=== PATIENT | female | born 2000 | race Caucasian/White ===

== ENCOUNTER 2023-02-24 00:13 | Inpatient (IN) ==
[2023-02-24] MEDS ORDERED: LORazepam 2 MG/1 ML VIAL IV STA ×2 (00:33→02:23)
--- NOTE | 2023-02-24 00:39 | Emergency Department Note ---
History of Present Illness General Chief complaint: Chest Pain Stated complaint: CHEST,ABD,SHOULDER PAIN,DIZZY,VOMITING Time Seen by Provider: 02/24/23 00:32 History of Present Illness This 23-year-old female presents the ER complaining of chest pain, nausea vomiting dizziness started after being at a haunted house who also just started fluoxetine 3 days ago. Patient denies fever, chills, cough, congestion, back pain, dyspnea, abdominal pain, leg pain or swelling. She is not sure if the symptoms are related to her new medication. No prior behavioral health medications. Allergies Allergy/AdvReac Type Severity Reaction Status Date / Time No Known Allergies Allergy Unverified 01/02/23 23:10 Past Med/Surg History Social History Smoking Status: Never smoker Second Hand Exposure: No; Do You Dip or Chew Tobacco: No; Tobacco Cessation Education Requested by Patient: No Hx Alcohol Use: Yes Hx Substance Use: No Preferred Language: Korean Communication Ability: Effective Hand Marker Required: No Beliefs That Will Affect Care: None Other Information That Helps Us Care for You: No Feels Safe at Home: Yes Safety Concerns: Feels Safe At This Time Review of Systems A total of 10 systems reviewed and were otherwise negative Physical Exam Vital Signs Vital Signs - 24 hr 02/24/23 00:23 02/24/23 05:29 02/24/23 07:00 Temperature 36.5 C Temperature Source Temporal Artery Scan Pulse Rate 80 Pulse Rate [Finger] 93 H 96 H Pulse Rhythm Regular Pulse Strength Normal Respiratory Rate 20 16 18 Respiratory Effort / Characteristics Non-Labored Spontaneous Respiratory Depth Normal Blood Pressure 110/64 Blood Pressure [Right Arm] 107/49 L 104/58 L Blood Pressure Mean 79 Blood Pressure Mean [Right Arm] 68 73 Blood Pressure Position Sitting Pulse Oximetry 100 97 99 Oxygen Delivery Method Room Air Room Air Sepsis Recent Fever Within 48 Hours No Sepsis New/Unexplained Change in Mental Status N/A Sepsis Action Taken by Nursing No Action Required 02/24/23 08:11 Temperature Temperature Source Pulse Rate 99 H Pulse Rate [Finger] Pulse Rhythm Pulse Strength Respiratory Rate Respiratory Effort / Characteristics Respiratory Depth Blood Pressure Blood Pressure [Right Arm] Blood Pressure Mean Blood Pressure Mean [Right Arm] Blood Pressure Position Pulse Oximetry Oxygen Delivery Method Sepsis Recent Fever Within 48 Hours Sepsis New/Unexplained Change in Mental Status Sepsis Action Taken by Nursing VITALS: Vitals are noted on the nurse's note and reviewed by myself. Vital s igns stable. GENERAL: Pleasant anxious appearing female, in no acute distress, nondiaphoretic, well-developed well-nourished. SKIN: The skin was without rashes, erythema, edema, or bruising. There is no tenting of the skin. Capillary reflex less than 2 seconds. HEAD: Normocephalic atraumatic. EARS: External auditory canals clear, EYES: Pupils equal round and reactive to light and accommodation. Conjunctivae without injection, sclerae without icterus. Extraocular movements intact. NOSE: Patent, turbinates without inflammation or discharge. MOUTH: Mucous membranes moist. Pharynx without erythema or exudate. Uvula midline. Airway patent. Tongue does not deviate. NECK: Supple without nuchal rigidity. No lymphadenopathy. No thyromegaly. Cervical spine is nontender. No JVD. HEART: Regular rate and rhythm LUNGS: Clear to auscultation bilaterally without wheezes, rales or rhonchi. No retractions or accessory muscle use. ABDOMEN: Positive bowel sounds x 4. Normal tympanic percussion. Soft, nontender, without masses or organomegaly. Pickens sign negative. No guarding or rebound tenderness. No CVA tenderness MUSCULOSKELETAL: No muscle atrophy, erythema, or edema noted. NEURO: Patient was alert and oriented to person place and time. Normal sensation to light and sharp touch. No focal neurological deficits. Course Administered Medications Lactated Ringer's (Lr) 1,000 mls @ 100 mls/hr IV .Q10H [facility] Stop: 03/26/23 11:14 Last Admin: 02/24/23 21:14 Dose: 100 mls/hr Documented By: Infusion: 02/24/23 21:14 Dose: 100 mls/hr Documented By: Admin: 02/24/23 13:47 Dose: 100 mls/hr Documented By: JAY Piperacillin Sod/Tazobactam (Sod 4.5 gm/ Dextrose) 100 mls @ 25 mls/hr IV Q8H [facility]ANY[facility]; Protocol Stop: 03/06/23 11:59 Last Admin: 02/24/23 21:13 Dose: 25 mls/hr Documented By: Infusion: 02/24/23 17:59 Dose: 0 mls/hr Documented By: Admin: 02/24/23 14:21 Dose: 25 mls/hr Documented By: JAY Vancomycin HCl 1,250 mg/ (Sodium Chloride) 275 mls @ 200 mls/hr IV Q12H [facility] Stop: 03/06/23 15:59 Last Infusion: 02/24/23 18:46 Dose: 0 mls/hr Documented By: Admin: 02/24/23 17:18 Dose: 200 mls/hr Documented By: JAY Ketorolac Tromethamine (Ketorolac Tromethamine 15 Mg/Ml Vial) 15 mg IV Q6H PRN PRN Reason: Pain & Pre PT Stop: 03/01/23 11:13 Last Admin: 02/24/23 15:56 Dose: 15 mg Documented By: JAY Morphine Sulfate (Morphine Sulfate 4 Mg/Ml 1 Ml Carp\Vial) 4 mg IV Q3H PRN PRN Reason: Pain (6,7,8,9,10) Stop: 03/10/23 11:13 Last Admin: 02/24/23 20:41 Dose: 4 mg Documented By: AMIRA Morphine Sulfate (Morphine Sulfate 2 Mg/Ml Carp) 2 mg IV Q3H PRN PRN Reason: Pain (1,2,3,4,5) & Pre PT Stop: 03/10/23 11:13 Last Admin: 02/24/23 17:26 Dose: 2 mg Documented By: JAY Discontinued Medications Bupivacaine HCl (Bupivacaine 0.5 % 5 Mg/1 Ml Mpf 30ml Vial) Confirm Administered Dose 30 ml .ROUTE .STK-MED ONE Stop: 02/24/23 09:46 Last Admin: 02/24/23 11:08 Dose: Not Given Documented By: GUTIERREZ Bupivacaine HCl/Epinephrine Bitart (Bupivacaine/Epinephrine 0.5% Mpf 1:200,000 30 Ml Vial) Confirm Administered Dose 30 ml .ROUTE .STK-MED ONE Stop: 02/24/23 09:46 Last Admin: 02/24/23 11:08 Dose: Not Given Documented By: GUTIERREZ Fentanyl Citrate (Fentanyl Citrate Pf 100 Mcg/2 Ml Vial) 50 mcg IV Q5M PRN PRN Reason: PACU Use Only-Pain Stop: 02/24/23 18:05 Last Admin: 02/24/23 12:05 Dose: 50 mcg Documented By: Admin: 02/24/23 11:50 Dose: 50 mcg Documented By: SED Fentanyl Citrate (Fentanyl Citrate Pf 100 Mcg/2 Ml Vial) Confirm Administered Dose 100 mcg .ROUTE .STK-MED ONE Stop: 02/24/23 11:51 Last Admin: 02/24/23 13:36 Dose: Not Given Documented By: JAY Sodium Chloride (Nss) 1,000 mls @ 999 mls/hr IV .Q1H1M ONE Stop: 02/24/23 03:23 Last Infusion: 02/24/23 03:28 Dose: 0 mls/hr Documented By: Admin: 02/24/23 02:27 Dose: 999 mls/hr Documented By: ANGELA Pantoprazole Sodium 80 mg/ (Dextrose) 120 mls @ 480 mls/hr IV ONE STA Stop: 02/24/23 04:05 Last Infusion: 02/24/23 05:17 Dose: 0 mls/hr Documented By: Admin: 02/24/23 05:02 Dose: 480 mls/hr Documented By: TRISH Piperacillin Sod/Tazobactam Sod (Zosyn) 4.5 gm in 100 mls @ 200 mls/hr IV NOW ONE Stop: 02/24/23 07:05 Last Infusion: 02/24/23 07:14 Dose: 0 mls/hr Documented By: Admin: 02/24/23 06:52 Dose: 200 mls/hr Documented By: TRISH Sodium Chloride (Nss) 1,000 mls @ 999 mls/hr IV .Q1H1M ONE Stop: 02/24/23 07:36 Last Infusion: 02/24/23 08:00 Dose: 0 mls/hr Documented By: Admin: 02/24/23 06:51 Dose: 999 mls/hr Documented By: TRISH Sodium Chloride (Nss) 1,000 mls @ 999 mls/hr IV .Q1H1M ONE Stop: 02/24/23 07:36 Last Infusion: 02/24/23 13:37 Dose: 0 mls/hr Documented By: Admin: 02/24/23 07:59 Dose: 999 mls/hr Documented By: KASSANDRA Vancomycin HCl 1,250 mg/ (Sodium Chloride) 525 mls @ 200 mls/hr IV NOW ONE Stop: 02/24/23 09:27 Last Admin: 02/24/23 07:59 Dose: 200 mls/hr Documented By: KASSANDRA Ioversol (Optiray 320 500ml) 107 ml IV ONCE ONE Stop: 02/24/23 03:45 Last Admin: 02/24/23 03:44 Dose: 107 ml Documented By: YANDEL Ketorolac Tromethamine (Ketorolac Tromethamine 15 Mg/Ml Vial) 10 mg IV NOW STA Stop: 02/24/23 02:42 Last Admin: 02/24/23 03:35 Dose: 10 mg Documented By: Lidocaine HCl (Lidocaine 1% Local 20 Ml Vial) Confirm Administered Dose 1 ml .ROUTE .STK-MED ONE Stop: 02/24/23 10:15 Last Admin: 02/24/23 11:07 Dose: 20 ml Documented By: MICHAEL Lorazepam (Lorazepam 2 Mg/1 Ml Vial) 0.5 mg IV NOW STA Stop: 02/24/23 00:34 Last Admin: 02/24/23 00:41 Dose: 0.5 mg Documented By: ANGELA Lorazepam (Lorazepam 2 Mg/1 Ml Vial) 0.5 mg IV NOW STA Stop: 02/24/23 02:24 Last Admin: 02/24/23 03:39 Dose: 0.5 mg Documented By: Ondansetron HCl (Ondansetron Inj 2 Mg/Ml 2 Ml Vial) 4 mg IV NOW STA Stop: 02/24/23 01:08 Last Admin: 02/24/23 01:11 Dose: 4 mg Documented By: ANGELA Medical Decision Making Medical Records Attestation: I reviewed the patient's medical records. Home Medications Current Medication List: was personally reviewed by me Laboratory Data Attestation: I reviewed the patient's lab results. 02/24/23 00:35 02/24/23 00:35 Lab Results 02/24/23 02/24/23 02/24/23 Range/Units 00:35 00:35 00:35 WBC 15.14 H (4.8-10.8) K/ul RBC 3.01 L (4.20-5.40) M/uL Hgb 9.2 L (12.0-16.0) g/dl POC Hgb (12.0-16.0) g/dl Hct 27.7 L (37.0-47.0) % POC Hct (37-47) % MCV 92.0 (80.0-100.0) fL MCH 30.6 (25.0-34.0) pg MCHC 33.2 (32.0-36.0) g/dL RDW Std Deviation 41.7 (36.4-46.3) fL RDW Coeff of Pam 12.4 (11.5-14.5) % Plt Count 332 (130-400) K/uL MPV 10.1 (9.4-12.4) fL Immature Gran % (Auto) 0.5 % Neut % (Auto) 77.8 % Lymph % (Auto) 14.3 % Lea % (Auto) 6.2 % Eos % (Auto) 0.7 % Baso % (Auto) 0.5 % Neut # (Auto) 11.78 H (1.40-6.50) K/uL Lymph # (Auto) 2.17 (1.20-3.40) K/uL Lea # (Auto) 0.94 H (0.11-0.59) K/uL Eos # (Auto) 0.10 (0.00-0.50) K/uL Baso # (Auto) 0.08 (0.00-0.20) K/uL Immature Gran # (Auto) 0.07 (0.01-0.20) K/uL POC Sodium (135-144) mmol/L Sodium 138 (136-145) mmol/L POC Potassium (3.3-5.0) mmol/L Potassium 3.7 (3.5-5.1) mmol/L POC Chloride (101-112) mmol/L Chloride 106 (98-107) mmol/L Carbon Dioxide 25 (21-32) mmol/L POC Total CO2 (24-31) mmol/L Anion Gap 7 (3-11) POC Anion Gap (16-25) mmol/L POC BUN (7-18) mg/dl BUN 17 (6-23) mg/dl Creatinine 0.82 (0.6-1.2) mg/dl POC Creatinine (0.6-1.3) mg/dl Est Cr Clr Drug Dosing 102.5 ml/min Est GFR ( Amer) 118.6 ml/min Est GFR (Non-Af Amer) 102.3 ml/min BUN/Creatinine Ratio 20.7 H (10-20) Glucose 129 H (70-99(Fasting)) mg/dl POC Glucose (other) (70-99) mg/dl Calcium 8.9 (8.6-10.3) mg/dl POC Ioniz Calcium Celi (1.12-1.32) mmol/l Magnesium 1.9 (1.7-2.4) mg/dl Total Bilirubin 0.3 (0.2-1.0) mg/dl AST 24 (13-39) U/L ALT 20 (7-52) U/L Alkaline Phosphatase 54 (34-104) U/L Troponin I High Sens 3.2 (0-14) pg/ml Total Protein 6.3 (6.0-8.3) gm/dl Albumin 4.3 (3.4-5.0) gm/dl Globulin 2.0 L (2.5-4.0) gm/dl Albumin/Globulin Ratio 2.2 H (0.9-2) Lipase 11 (11-82) U/L TSH 2.967 (0.300-4.500) uIu/ml HCG, Qual Negative (Negative) Blood Type Antibody Screen 02/24/23 02/24/23 Range/Units 02:32 07:25 WBC (4.8-10.8) K/ul RBC (4.20-5.40) M/uL Hgb (12.0-16.0) g/dl POC Hgb 9.5 L (12.0-16.0) g/dl Hct (37.0-47.0) % POC Hct 28 L (37-47) % MCV (80.0-100.0) fL MCH (25.0-34.0) pg MCHC (32.0-36.0) g/dL RDW Std Deviation (36.4-46.3) fL RDW Coeff of Pam (11.5-14.5) % Plt Count (130-400) K/uL MPV (9.4-12.4) fL Immature Gran % (Auto) % Neut % (Auto) % Lymph % (Auto) % Lea % (Auto) % Eos % (Auto) % Baso % (Auto) % Neut # (Auto) (1.40-6.50) K/uL Lymph # (Auto) (1.20-3.40) K/uL Lea # (Auto) (0.11-0.59) K/uL Eos # (Auto) (0.00-0.50) K/uL Baso # (Auto) (0.00-0.20) K/uL Immature Gran # (Auto) (0.01-0.20) K/uL POC Sodium 138 (135-144) mmol/L Sodium (136-145) mmol/L POC Potassium 3.8 (3.3-5.0) mmol/L Potassium (3.5-5.1) mmol/L POC Chloride 101 (101-112) mmol/L Chloride (98-107) mmol/L Carbon Dioxide (21-32) mmol/L POC Total CO2 23 L (24-31) mmol/L Anion Gap (3-11) POC Anion Gap 19.0 (16-25) mmol/L POC BUN 15 (7-18) mg/dl BUN (6-23) mg/dl Creatinine (0.6-1.2) mg/dl POC Creatinine 0.7 (0.6-1.3) mg/dl Est Cr Clr Drug Dosing ml/min Est GFR ( Amer) ml/min Est GFR (Non-Af Amer) ml/min BUN/Creatinine Ratio (10-20) Glucose (70-99(Fasting)) mg/dl POC Glucose (other) 121 H (70-99) mg/dl Calcium (8.6-10.3) mg/dl POC Ioniz Calcium Celi 1.21 (1.12-1.32) mmol/l Magnesium (1.7-2.4) mg/dl Total Bilirubin (0.2-1.0) mg/dl AST (13-39) U/L ALT (7-52) U/L Alkaline Phosphatase (34-104) U/L Troponin I High Sens (0-14) pg/ml Total Protein (6.0-8.3) gm/dl Albumin (3.4-5.0) gm/dl Globulin (2.5-4.0) gm/dl Albumin/Globulin Ratio (0.9-2) Lipase (11-82) U/L TSH (0.300-4.500) uIu/ml HCG, Qual (Negative) Blood Type A Positive Antibody Screen NEGATIVE Imaging Data Attestation: I personally reviewed and interpreted this imaging study as follows: Radiologist's Impression: Chest X-Ray 02/24/23 00:33 XR chest 1V portable CLINICAL HISTORY: Chest pain, nonspecific TECHNIQUE: Single frontal radiograph of the chest was obtained. Comparison: None available at the time of this dictation. FINDINGS: Pneumoperitoneum is seen. The cardiomediastinal silhouette is normal. The lungs are clear. No evidence of pleural effusion or pneumothorax. IMPRESSION: Pneumoperitoneum is seen. No intrathoracic abnormality. Clinician was aware of findings. ACT 112: Negative or not required by law. Electronically signed by: Yung Gutierrez M.D. 02/24/2023 12:13 PM [facility] Narrative Prior records/ancillary studies reviewed. Triage Nursing notes reviewed. Additional history obtained from nursing. The patient's history was concerning for chest pain, nausea vomiting and dizziness after recently starting fluoxetine. Differential diagnosis: Etiologies such as side effect of behavioral health medication, anxiety, cardiac ischemia, aortic dissection, pulmonary embolism, pneumonia, pneumothorax, musculoskeletal, infections, pericarditis, myocarditis, esophageal rupture, gastrointestinal, as well as others were entertained. Physical examination: As above. ER treatment provided: An order was placed for continuous cardiac monitoring. The monitor shows a rate of 60-100 with a sinus rhythm per my interpretation. Ativan, Toradol, IV fluids were ordered Zosyn, vancomycin, IV fluids were ordered. Type and screen was sent. On reassessment the patient felt better. Diagnostic interpretation by me: The electrocardiogram was negative for pathologic change. Order for chest pain EKG: Normal sinus, normal intervals, T wave inversion aVL, rate of 63. Impression normal sinus rhythm with a nonspecific T wave version independent interpreted by myself I think arrhythmia is unlikely. EKG shows normal sinus rhythm with no interval abnormalities such as QT prolongation or WPW. There are no findings to suggest Brugada syndrome. Cardiac monitoring in the emergency department reveals no tachycardic or bradycardic dysrhythmia. Hypertrophic cardiomyopathy was considered but there are no clear historical elements pointing toward this. EKG is not suggestive. The QRS voltage is not extremely large and there are no suggestive Q waves. The labs Independently Interpreted by myself revealed negative troponin, anemia, hyperglycemia that DKA, euthyroid, negative hCG Leukocytosis. Patient states she has been anemic and occasionally takes her iron. Imaging studies: Chest x-ray with concerns for possible free air under the diaphragm per my independent interpretation. CT of the chest abdomen pelvis was reviewed and read by radiology as above. Surgery was immediately consulted HEART SCORE: Hx: high/mod/low suspicion: 0 ECG: ST depression/nonspecific changes/normal: 0 Age: Greater than 65/45-64/less than 45: 0 Risk factors: (Hypertension, hyperlipidemia, diabetes, coronary disease, tobacco use, cocaine use): 0 Troponin: Greater than 2 times normal limits/1-2 times normal limits/normal: 0 Total: 0 On repeat exam, patient then developed abdominal pain so advanced imaging was ordered. This is after the nurse medicated her as above with Ativan fluids and Toradol. Consultation was placed to surgery, Dr. Cornejo and the case was reviewed. He will come in and evaluate the patient. Exam and history are concerning for viscus perforation that most likely is from a stomach ulcer. Patient was already given Protonix by myself and antibiotics after imaging was reviewed. Surgery was immediately consulted. They will evaluate the patient. Patient will be admitted to the surgical service for further evaluation and treatment. Results were reviewed with the patient and all questions were answered. Patient initially came in for chest pain and nausea vomiting and feeling lightheaded after being in a haunted house due to started fluoxetine. After being in the ER for a while she then developed abd ominal pain so advanced imaging was ordered. Labs and diagnostics are interventricular myself. Radiology read the CAT scan. Surgery was consulted and patient will be evaluated surgical service. Patient was reassessed multiple times. Results reviewed with patient. Surgery took the patient to the OR for further evaluation and treatment. Patient remained hemodynamically stable while in the ER. The pt informed about the findings as listed above. All questions were answered and pleased with the treatment. The chart was completed utilizing [employer] Speech voice recognition software. Grammatical errors, random word insertions, pronoun errors, and incomplete sentences are an occassional consequence of this system due to software limitations, ambient noise, and hardware issues. Any formal questions or concerns about the content, text, or information contained within the body of this dictation should be directly addressed to the physician technical support assistant for clarification. Impression & Plan Perforation of viscus Discharge Plan Visit Data Chief Complaint: Chest Pain Stated Complaint: CHEST,ABD,SHOULDER PAIN,DIZZY,VOMITING ED Provider: Vivien Breaux ED Midlevel Provider: Rose Gomez Discharge Problem: Perforation of viscus Patient Disposition: Admitted As Inpatient Condition: Good Discharge Instructions Interventions: ED Discharge Assessment Last Done: 02/24/23 08:47
[2023-02-24] MEDS ORDERED: ONDANSETRON INJ 2 MG/ML 2 ML VIAL IV STA (01:07)
[2023-02-24 01:19] LABS: Basophils # (auto) 0.08 K/uL (0.00-0.20); Basophils % (auto) 0.5 %; Eosinophils % (auto) 0.7 %; Hematocrit (blood only) 27.7 % (37.0-47.0); Hemoglobin 9.2 g/dl (12.0-16.0); Immature Granulocytes # (auto) 0.07 K/uL (0.01-0.20); Immature Granulocytes % (auto) 0.5 %; Lymphocytes # (auto) 2.17 K/uL (1.20-3.40); Lymphocytes % (auto) 14.3 %; Mean Corpuscular Hemoglobin 30.6 pg (25.0-34.0); Mean Corpuscular Hgb Conc 33.2 g/dL (32.0-36.0); Mean Platelet Volume 10.1 fL (9.4-12.4); Monocytes # (auto) 0.94 K/uL (0.11-0.59); Monocytes % (auto) 6.2 %; Neutrophils # (auto) 11.78 K/uL (1.40-6.50); Neutrophils % (auto) 77.8 %; Platelet Count 332 K/uL (130-400); RDW Coefficient of Variation 12.4 % (11.5-14.5); RDW Standard Deviation 41.7 fL (36.4-46.3); Red Blood Count 3.01 M/uL (4.20-5.40); White Blood Count 15.14 K/ul (4.8-10.8)
[2023-02-24 01:24] LABS: Troponin I High Sensitivity 3.2 pg/ml (0-14)
[2023-02-24 01:26] LABS: Pregnancy Test, Serum Negative (Negative)
[2023-02-24 01:33] LABS: Thyroid Stimulating Hormone 2.967 uIu/ml (0.300-4.500)
[2023-02-24] MEDS ORDERED: SODIUM CHLORIDE 0.9% 1,000 ML IV ONE ×3 (02:23→06:36)
[2023-02-24 02:35] LABS: Albumin Level 4.3 gm/dl (3.4-5.0); Bilirubin,Total 0.3 mg/dl (0.2-1.0); Calcium 8.9 mg/dl (8.6-10.3); Magnesium 1.9 mg/dl (1.7-2.4); Potassium 3.7 mmol/L (3.5-5.1)
[2023-02-24] MEDS ORDERED: KETOROLAC TROMETHAMINE 15 MG/ML VIAL IV STA (02:41)
[2023-02-24 02:42] LABS: Albumin Globulin Ratio 2.2 (0.9-2); BUN Creatinine Ratio 20.7 (10-20); Creatinine Clr Calc Pharmacy 102.5 ml/min; Est GFR (African American) 118.6 ml/min; Est GFR (Non-African American) 102.3 ml/min; Total Protein 6.3 gm/dl (6.0-8.3)
[2023-02-24 02:49] LABS: iSTAT Creatinine 0.7 mg/dl (0.6-1.3); iSTAT Hemoglobin 9.5 g/dl (12.0-16.0); iSTAT Ionized Calcium 1.21 mmol/l (1.12-1.32); iSTAT Potassium 3.8 mmol/L (3.3-5.0)
[2023-02-24] MEDS ORDERED: OPTIRAY 320 500ml IV ONE (03:44)
[2023-02-24] MEDS ORDERED: PANTOprazole 80 MG in DEXTROSE 5% 100 ML IV STA (03:51)
--- NOTE | 2023-02-24 06:33 | CT Scan Report ---
Exam(s): CTA CHEST IV Amt: 107 ml opti 320 EXAM: CT Angiography Chest and CT Abdomen and Pelvis With Intravenous Contrast CLINICAL HISTORY: Reason for exam: PE. TECHNIQUE: Axial computed tomographic angiography images of the chest and axial computed tomography images of the abdomen and pelvis with intravenous contrast. Automated exposure control was utilized for the study. A dose lowering technique was utilized adhering to the principles of ALARA. MIP reconstructed images were created and reviewed. COMPARISON: No relevant prior studies available. FINDINGS: CHEST: Aorta: No acute findings. No aortic aneurysm. No dissection. Pulmonary arteries: Motion artifact and bolus timing limit evaluation. Despite this, no evidence of pulmonary embolism within the pulmonary outflow tract or immediate proximal branches. Great vessels of aortic arch: No acute findings. No dissection. No arterial occlusion or significant stenosis. Lungs: Unremarkable. No mass. No consolidation. Pleural space: Unremarkable. No significant effusion. No pneumothorax. Heart: Unremarkable. No cardiomegaly. No significant pericardial effusion. ABDOMEN: Liver: Unremarkable. No mass. Gallbladder and bile ducts: Unremarkable. No calcified stones. No ductal dilation. Pancreas: Unremarkable. No ductal dilation. No mass. Spleen: Unremarkable. No splenomegaly. Adrenals: Unremarkable. No mass. Kidneys and ureters: Unremarkable. No hydronephrosis. No solid mass. Stomach and bowel: No evidence of bowel obstruction. No mucosal thickening. PELVIS: Appendix: The appendix is poorly visualized without gross findings to suggest appendicitis. Bladder: Unremarkable. No mass. Reproductive: Unremarkable as visualized. CHEST, ABDOMEN and PELVIS: Intraperitoneal space: Diffuse free air within the upper abdomen. Findings may relate to viscus perforation. Site of perforation not identified. Consider surgical consultation. Mild pelvic free fluid which may be reactive or physiologic in nature. Bones/joints: No acute fracture. No dislocation. Soft tissues: Unremarkable. Lymph nodes: Unremarkable. No enlarged lymph nodes. Other findings: Mild dependent atelectatic changes. IMPRESSION: 1. Diffuse free air within the upper abdomen. Findings may relate to viscus perforation. Site of perforation not identified. Consider surgical consultation. 2. No evidence of bowel obstruction. 3. Mild pelvic free fluid which may be reactive or physiologic in nature. 4. The appendix is poorly visualized without gross findings to suggest appendicitis. 5. Motion artifact and bolus timing limit evaluation. Despite this, no evidence of pulmonary embolism within the pulmonary outflow tract or immediate proximal branches. Communications: Call Doctor Above results Electronically signed by: Ernie Chang MD 02/24/23 06:32 AM
[2023-02-24] MEDS ORDERED: PIPERACILLIN/TAZOBACTAM 4.5 GM/100 ML BAG IV ONE (06:36)
[2023-02-24] MEDS ORDERED: VANCOMYCIN HCL 1,250 MG in SODIUM CHLORIDE 0.9% 500 ML IV ONE (06:50)
[2023-02-24] MEDS ORDERED: VANCOMYCIN CONSULT ACTIVE PRN (06:50)
--- NOTE | 2023-02-24 08:13 | History & Physical Report ---
Date of Service February 24, 2023 Assessment & Plan (1) Perforation of viscus: Plan: IVF IV bax to OR for exploration with likely perforated duodenal ulcer Present on Admission?: Yes History of Present Illness Chief Complaint: abdominal pain Primary Care Provider: [facility] This is a 23-year-old female complaining of chest/abdominal pain, nausea vomiting dizziness started after being at a haunted house who also just started fluoxetine 3 days ago. No vomiting. Seen initially and then pain got much worse. She denies fever, chills, cough, congestion, back pain, dyspnea, abdominal pain, leg pain or swelling. Not on chronic NSAIDs. CT scan shows free air and some fluid in her pelvis; no diverticulitis/no appendicitis. Allergies Allergy/AdvReac Type Severity Reaction Status Date / Time No Known Allergies Allergy Unverified 01/02/23 23:10 Past Med/Surg History Social History Smoking Status: Never smoker Preferred Language: Pashto Feels Safe at Home: Yes Review of Systems + weakness and + anorexia; no fever and no chills no problem reported no problem reported no cough and no dyspnea + chest pain; no dyspnea + abdominal pain and + nausea; no vomiting, no hematemesis and no change in bowel habits no dysuria + back pain; no neck pain and no joint pain no rash and no lesions no gait abnormality and no localized weakness no behavioral changes no fatigue no easy bleeding and no easy bruising Physical Exam Constitutional: WD/WN, vitals as above Eyes: PERRL, conjunctivae normal, anicteric sclerae ENMT: external ear and nose normal, oropharynx normal Neck: trachea midline Respiratory: normal respiratory effort, lungs clear to auscultation Cardiovascular: RRR, no murmur, no edema Gastrointestinal (Abdomen): Inspection/Auscultation: abdomen normal to inspection, normal bowel sounds, + abdominal surgical scar and + hypoactive bowel sounds; abdomen not distended Percussion/Palpation: + abdomen tender, + guarding and abdomen soft; abdomen not rigid and no hernia Musculoskeletal: Head/Neck/Chest: normocephalic and head atraumatic Skin: no rashes, warm and dry Psychiatric: Orientation: alert, oriented x 3 and cooperative ASA Classification ASA ASA1E Results & Data Vital Signs (Past 12 Hours) Vital Signs Temp Pulse Pulse Resp BP BP Pulse Ox 02/24/23 07:00 96 H 18 104/58 L 99 02/24/23 05:29 93 H 16 107/49 L 97 02/24/23 00:23 36.5 C 80 20 110/64 100 O2 Del Method 02/24/23 07:00 Room Air 02/24/23 05:29 02/24/23 00:23 Room Air Diagnostic Findings Exam(s): CT ABDOMEN + PELVIS With Contrast IV Amt: 107 ml opti 320 EXAM: CT Angiography Chest and CT Abdomen and Pelvis With Intravenous Contrast CLINICAL HISTORY: Reason for exam: PE. TECHNIQUE: Axial computed tomographic angiography images of the chest and axial computed tomography images of the abdomen and pelvis with intravenous contrast. Automated exposure control was utilized for the study. A dose lowering technique was utilized adhering to the principles of ALARA. MIP reconstructed images were created and reviewed. COMPARISON: No relevant prior studies available. FINDINGS: CHEST: Aorta: No acute findings. No aortic aneurysm. No dissection. Pulmonary arteries: Motion artifact and bolus timing limit evaluation. Despite this, no evidence of pulmonary embolism within the pulmonary outflow tract or immediate proximal branches. Great vessels of aortic arch: No acute findings. No dissection. No arterial occlusion or significant stenosis. Lungs: Unremarkable. No mass. No consolidation. Pleural space: Unremarkable. No significant effusion. No pneumothorax. Heart: Unremarkable. No cardiomegaly. No significant pericardial effusion. ABDOMEN: Liver: Unremarkable. No mass. Gallbladder and bile ducts: Unremarkable. No calcified stones. No ductal dilation. Pancreas: Unremarkable. No ductal dilation. No mass. Spleen: Unremarkable. No splenomegaly. Adrenals: Unremarkable. No mass. Kidneys and ureters: Unremarkable. No hydronephrosis. No solid mass. Stomach and bowel: No evidence of bowel obstruction. No mucosal thickening. PELVIS: Appendix: The appendix is poorly visualized without gross findings to suggest appendicitis. Bladder: Unremarkable. No mass. Reproductive: Unremarkable as visualized. CHEST, ABDOMEN and PELVIS: Intraperitoneal space: Diffuse free air within the upper abdomen. Findings may relate to viscus perforation. Site of perforation not identified. Consider surgical consultation. Mild pelvic free fluid which may be reactive or physiologic in nature. Bones/joints: No acute fracture. No dislocation. Soft tissues: Unremarkable. Lymph nodes: Unremarkable. No enlarged lymph nodes. Other findings: Mild dependent atelectatic changes. IMPRESSION: 1. Diffuse free air within the upper abdomen. Findings may relate to viscus perforation. Site of perforation not identified. Consider surgical consultation. 2. No evidence of bowel obstruction. 3. Mild pelvic free fluid which may be reactive or physiologic in nature. 4. The appendix is poorly visualized without gross findings to suggest appendicitis. 5. Motion artifact and bolus timing limit evaluation. Despite this, no evidence of pulmonary embolism within the pulmonary outflow tract or immediate proximal branches. Code Status & VTE Plan VTE Prophylaxis Plan VTE Prophylaxis will be ordered: Yes
--- NOTE | 2023-02-24 09:20 | Emergency Department Note ---
ED Visit Note Patient seen by physician assistant program manager Jason burch. Diagnosed with free air in the abdomen possible perforated ulcer. Received IV dose of PPI. Received IV Zosyn. IV vancomycin ordered and administered. Surgical consultation completed. Dr. Cornejo plans for OR for exploration given this finding on CT of free air. Patient hemodynamically stable here. Patient declined any additional pain medicine. Taken to the OR for further care. .
[2023-02-24] MEDS ORDERED: FAMOTIDINE/PF 20 MG/2 ML VIAL IV ONE (09:30)
[2023-02-24] MEDS ORDERED: SCOPOLAMINE 1 MG TDSY TD ONE (09:30)
[2023-02-24] MEDS ORDERED: ACETAMINOPHEN 1000 MG/100 ML IV IV ONE (09:30)
[2023-02-24] MEDS ORDERED: fentaNYL citrate PF 100 MCG/2 ML VIAL ONE ×2 (09:32→11:50)
[2023-02-24] MEDS ORDERED: MIDAZOLAM HCL 1 MG/ML 2ML VIAL ONE (09:32)
[2023-02-24] MEDS ORDERED: LIDOCAINE 2% 2 ML VIAL/AMP(20MG/ML) INFIL ONE (09:32)
[2023-02-24] MEDS ORDERED: ROCURONIUM BROMIDE 10 MG/ML 5 ML VIAL IV ONE (09:33)
[2023-02-24] MEDS ORDERED: SUCCINYLCHOLINE CHLORIDE 20 MG/ML 10 ML VIAL IV ONE (09:33)
[2023-02-24] MEDS ORDERED: PROPOFOL IV EMULSION 10 MG/ML 20 ML VIAL IV ONE (09:33)
[2023-02-24] MEDS ORDERED: ONDANSETRON INJ 2 MG/ML 2 ML VIAL ONE (09:33)
[2023-02-24] MEDS ORDERED: DEXAMETHASONE SOD INJ 4 MG/ML VIAL ONE (09:35)
[2023-02-24] MEDS ORDERED: BUPIVACAINE/EPINEPHRINE 0.5% MPF 1:200,000 30 ML VIAL ONE (09:45)
[2023-02-24] MEDS ORDERED: BUPIVACAINE 0.5 % 5 MG/1 ML MPF 30ML VIAL ONE (09:45)
--- NOTE | 2023-02-24 10:03 | Anesthesiology Consultation ---
Date of Service February 24, 2023 Assessment & Plan Chart Review Chart Review: Acceptable Risk for Surgery Consults Requested none History Surgery Operation Date: 02/24/23 11:00 Proposed Procedures p Exploratory Laparotomy - Alvin Cornejo MD Height/Weight Height: 5 ft 7 in Weight: 59.8 kg Allergies Allergy/AdvReac Type Severity Reaction Status Date / Time No Known Allergies Allergy Unverified 01/02/23 23:10 NPO Date Last Intake of Fluids: 02/23/23 Time Last Intake of Fluids: 21:00 Date Last Intake of Solids: 02/23/23 Time Last Intake of Solids: 21:00 Social History Smoking Status: Never smoker Physical Exam Vital Signs Last Vital Signs Temp 36.5 C 02/24/23 00:23 Pulse 99 H 02/24/23 08:11 Resp 18 02/24/23 07:00 BP 104/58 L 02/24/23 07:00 Pulse Ox 99 02/24/23 07:00 O2 Del Method Room Air 02/24/23 07:00 Testing Laboratory Results 02/24/23 00:35 02/24/23 00:35 Blood Type A Positive 02/24/23 07:25 Antibody Screen NEGATIVE 02/24/23 07:25 02/24/23 02:32 POC Glucose (other) 121 H
[2023-02-24] MEDS ORDERED: ATROPINE SULFATE 0.1 MG/ML 10ML SYR IV PRN (10:05)
[2023-02-24] MEDS ORDERED: ePHEDrine sulfate 50 MG/ML AMP IV PRN (10:05)
[2023-02-24] MEDS ORDERED: HYDROmorphone INJ 2 MG/ML SYR/VIAL IV PRN (10:05)
[2023-02-24] MEDS ORDERED: ONDANSETRON INJ 2 MG/ML 2 ML VIAL IV PRN ×2 (10:05→11:14)
[2023-02-24] MEDS ORDERED: PROMETHAZINE HCL 12.5 MG in SODIUM CHLORIDE 0.9% 50 ML IV PRN ×2 (10:05→11:14)
[2023-02-24] MEDS ORDERED: LIDOCAINE 1% LOCAL 20 ML VIAL ONE (10:14)
[2023-02-24] MEDS ORDERED: NEOSTIGMINE METHYLSULFATE 1 MG/ML 10ML VIAL ONE (10:30)
[2023-02-24] MEDS ORDERED: GLYCOPYRROLATE 0.2 MG/ML VIAL ONE (10:30)
[2023-02-24] MEDS ORDERED: PHENYLEPHRINE HCL 10 MG/ML VIAL ONE (10:30)
[2023-02-24] MEDS ORDERED: METOCLOPRAMIDE HCL INJ 5 MG/ML 2 ML VIAL ONE (10:31)
[2023-02-24] MEDS ORDERED: HYDROmorphone INJ 2 MG/ML SYR/VIAL ONE (10:45)
[2023-02-24] MEDS ORDERED: KETOROLAC TROMETHAMINE 15 MG/ML VIAL IV PRN (11:14)
--- NOTE | 2023-02-24 11:23 | Operative Report ---
Post Operative Report Pre & Post Diagnosis Operation Date: 02/24/23 11:00 <No data on this case meets the specified criteria> I identified the patient and participated in the time-out.: Yes Procedure Operation Date: 02/24/23 11:00 <No data on this case meets the specified criteria> Surgeon Alvin Cornejo MD Superintendent Stevedoring none Estimated Blood Loss 30 Findings Consistent with Post-Op Diagnosis perforated gastric ulcer Specimens biopsy of gastric ulcer Drains [place] Complications none Indications This is a 23-year-old female who initially presented to the ED with with abdominal pain. She was initially ambulatory and underwent a work-up which included a CT scan of the CT scan showed a large amount of free air and fluid in her pelvis. She began having more severe abdominal pain. She had an elevated heart rate and complained of more pain. On exam she had peritoneal signs we discussed this in detail with her and recommended exploratory laparotomy I went over the risks of possible colostomy,reoperation, IR drainage, bleeding requiring transfusion and prolonged ileus. She understands this and wishes to proceed. Description of Procedure Patient was taken to the OR and underwent excellent general trach anesthesia. Her abdomen is prepped and draped normal sterile fashion. An upper midline incision was made from her xiphoid down to just below her umbilicus. Peritoneal cavity was entered sharply. There is a large amount of turbid fluid which is identified. Retraction was placed and her upper abdomen. Her duodenum was identified and slightly mobilized without any abnormalities noted. Attention was then turned to her stomach using [place] clamps to retract her stomach inferiorly. There was a subcentimeter gastric perforation just proximal to the pylorus on the anterior surface of the stomach. Once is identified a biopsy was taken of the ulcer to remove the abnormal tissue. This is sent for pathologic evaluation. A series of interrupted 2-0 silk suture was used to close the defec t. The tails of the sutures were then used to buttress the repair with a segment of omentum. The abdomen was then irrigated out with warm saline 1 L. With anesthesia help NG tube was manipulated into the body of the stomach. A Villa drain was then brought out through a stab incision in the right abdominal wall and laid along the subhepatic space near the defect repair. Suture the fascia was then closed with a running #1 PDS suture. 1% Xylocaine was used to create a foot field block in her skin and fascia. Skin was closed with ike. Sterile dressing was applied. Patient was then extubated in the OR and sent to the postop recovery for a period of observation. She will be then sent to the floor for care. I attest to the content of the Intraoperative Record and any orders documented therein. Any exceptions are noted below.
[2023-02-24] MEDS: fentaNYL citrate PF 100 MCG/2 ML VIAL IV PRN ×2 (11:50→12:05)
--- NOTE | 2023-02-24 12:15 | XRay Report ---
XR chest 1V portable CLINICAL HISTORY: Chest pain, nonspecific TECHNIQUE: Single frontal radiograph of the chest was obtained. Comparison: None available at the time of this dictation. FINDINGS: Pneumoperitoneum is seen. The cardiomediastinal silhouette is normal. The lungs are clear. No evidenc e of pleural effusion or pneumothorax. IMPRESSION: Pneumoperitoneum is seen. No intrathoracic abnormality. Clinician was aware of findings. ACT 112: Negative or not required by law. Electronically signed by: Yung Gutierrez M.D. 02/24/2023 12:13 PM
--- NOTE | 2023-02-24 13:39 | Anesthesiology Progress Note ---
Date of Service February 24, 2023 Anesthesia Post Procedure Vital Signs Vital Signs: Temp Pulse Pulse Pulse Resp BP BP 02/24/23 12:35 70 16 108/50 L 02/24/23 12:25 70 16 112/49 L 02/24/23 11:55 62 18 102/50 L 02/24/23 11:45 59 L 17 103/57 L 02/24/23 11:35 56 L 19 99/45 L 02/24/23 12:15 36.9 C 70 14 107/65 02/24/23 12:05 67 14 114/62 02/24/23 11:29 36.5 C 61 19 99/57 L 02/24/23 08:11 99 H 02/24/23 07:00 96 H 18 02/24/23 05:29 93 H 16 02/24/23 00:23 36.5 C 80 20 110/64 BP Pulse Ox O2 Del Method O2 Flow Rate 02/24/23 12:35 94 Room Air 02/24/23 12:25 95 Room Air 02/24/23 11:55 96 Room Air 02/24/23 11:45 100 Oxymask 4 02/24/23 11:35 100 Oxymask 6 02/24/23 12:15 95 Room Air 02/24/23 12:05 97 Room Air 02/24/23 11:29 100 Oxymask 6 02/24/23 08:11 02/24/23 07:00 104/58 L 99 Room Air 02/24/23 05:29 107/49 L 97 02/24/23 00:23 100 Room Air Pain Intensity Abdomen: Pain Intensity: 2 Transfer of Care Handoff Completed per policy Notes Mental Status: alert / awake / arousable and participated in evaluation Patient Amnestic to Procedure: Yes Nausea / Vomiting: adequately controlled Pain: adequately controlled Airway Patency, RR, SpO2: stable & adequate BP & HR: stable & adequate Hydration State: stable & adequate Anesthetic Complications: no major complications apparent
[2023-02-24] MEDS: LACTATED RINGER'S 1,000 ML IV SCH ×2 (13:47→21:14)
[2023-02-24] MEDS: PIPERACILLIN/TAZOBACTAM 4.5 GM in DEXTROSE 5% MINI-B 100 ML IV SCH ×2 (14:21→21:13)
--- NOTE | 2023-02-24 15:49 | Pharmacy Report ---
Pharmacy PK ABX Note - Date of Service February 24, 2023 - Assessment and Plan Assessment 23 year old F receiving VANCOMYCIN/ZOSYN for treatment of perforated gastric ulcer. POD #0. Plan Vancomycin * Loading dose: 1250 mg IV x 1 * Maintenance dose: 1250 mg IV every 12 hours * Regimen is predicted to achieve target AUC/SHARATH of 400-600 mg/L.hr * Trough for 10/16 AM if vancomycin continues. Pharmacy will continue to follow and will adjust dose/frequency as necessary. Thank you. Pharmacy has transitioned to AUC monitoring for vancomycin. AUC/SHARATH is the preferred PK/PD target and is associated with decreased risk of nephrotoxicity compared to traditional trough targets.
[2023-02-24] MEDS: VANCOMYCIN HCL 1,250 MG in SODIUM CHLORIDE 0.9% 250 ML IV SCH (17:18)
[2023-02-24] MEDS: MoRPHine SULFATE 2 MG/ML CARP IV PRN (17:26)
[2023-02-24] MEDS: MoRPHine SULFATE 4 MG/ML 1 ML CARP\\VIAL IV PRN (20:41)
[2023-02-25] MEDS: MoRPHine SULFATE 4 MG/ML 1 ML CARP\\VIAL IV PRN ×5 (00:22→20:10)
[2023-02-25] MEDS: CHECK SCOPOLAMINE PATCH PLACEMENT SCH ×3 (01:51→16:05)
[2023-02-25] MEDS: PIPERACILLIN/TAZOBACTAM 4.5 GM in DEXTROSE 5% MINI-B 100 ML IV SCH ×3 (04:40→20:19)
[2023-02-25] MEDS: VANCOMYCIN HCL 1,250 MG in SODIUM CHLORIDE 0.9% 250 ML IV SCH ×2 (06:18→16:05)
[2023-02-25] MEDS: LACTATED RINGER'S 1,000 ML IV SCH (06:18)
--- NOTE | 2023-02-25 07:37 | Electrocardiogram Report ---
Test Reason : Blood Pressure : / mmHG Vent. Rate : 063 BPM Atrial Rate : 063 BPM P-R Int : 174 ms QRS Dur : 080 ms QT Int : 396 ms P-R-T Axes : 013 016 061 degrees QTc Int : 405 ms Normal sinus rhythm Possible Left atrial enlargement Nonspecific T wave abnormality Abnormal ECG No previous ECGs available Confirmed by Dameon Davey ([id number]) on 02/25/2023 7:36:54 AM Referred By: REFERRED SELF Confirmed By:Dameon Davey
[2023-02-25 08:01] LABS: Basophils # (auto) 0.03 K/uL (0.00-0.20); Basophils % (auto) 0.3 %; Eosinophils # (auto) 0.02 K/uL (0.00-0.50); Eosinophils % (auto) 0.2 %; Hematocrit (blood only) 22.6 % (37.0-47.0); Hemoglobin 7.5 g/dl (12.0-16.0); Immature Granulocytes # (auto) 0.04 K/uL (0.01-0.20); Immature Granulocytes % (auto) 0.4 %; Lymphocytes # (auto) 1.94 K/uL (1.20-3.40); Lymphocytes % (auto) 21.3 %; Mean Corpuscular Hemoglobin 30.5 pg (25.0-34.0); Mean Corpuscular Hgb Conc 33.2 g/dL (32.0-36.0); Mean Corpuscular Volume 91.9 fL (80.0-100.0); Mean Platelet Volume 10.2 fL (9.4-12.4); Monocytes # (auto) 0.81 K/uL (0.11-0.59); Monocytes % (auto) 8.9 %; Neutrophils # (auto) 6.26 K/uL (1.40-6.50); Neutrophils % (auto) 68.9 %; Platelet Count 230 K/uL (130-400); RDW Standard Deviation 44.2 fL (36.4-46.3); Red Blood Count 2.46 M/uL (4.20-5.40)
[2023-02-25 08:32] LABS: RBC Morphology Unremarkable
[2023-02-25 08:41] LABS: Potassium 3.9 mmol/L (3.5-5.1)
[2023-02-25 08:46] LABS: BUN Creatinine Ratio 16.5 (10-20); Creatinine Clr Calc Pharmacy 106.3 ml/min
--- NOTE | 2023-02-25 11:33 | Surgery Progress Note ---
Date of Service February 25, 2023 Assessment & Plan (1) Perforated gastric ulcer: Plan: con't ngt likely study Sunday adjust pain meds ambulate PPI Present on Admission?: Yes Admission and Anticipated Discharge Date Admission Date: February 24, 2023 Subjective still with breakthrough pain no complaints otherwise ambulate Review of Systems Constitutional: no fever and no chills Cardiovascular: no chest pain Gastrointestinal: + abdominal pain; no nausea and no vomiting Genitourinary: no dysuria Musculoskeletal: no back pain Neurologic: + generalized weakness; no localized weakness Psychiatric: no behavioral changes Physical Exam Constitutional: WD/WN, vitals as above Eyes: PERRL, conjunctivae normal, anicteric sclerae Respiratory: normal respiratory effort, lungs clear to auscultation Cardiovascular: RRR, no murmur, no edema Gastrointestinal (Abdomen): Inspection/Auscultation: normal bowel sounds and + abdominal surgical incision; abdomen not distended Percussion/Palpation: + abdomen tender and abdomen soft; no guarding and abdomen not rigid Skin: no rashes, warm and dry Results & Data Vital Signs (Past 12 Hours) Vital Signs Temp Pulse Resp BP Pulse Ox O2 Del Method 02/25/23 07:51 101/61 02/25/23 06:29 37.5 C 68 16 96/55 L 95 Room Air 02/25/23 04:23 36.9 C 61 16 107/58 L 96 Room Air 02/24/23 23:44 36.9 C 82 16 95/60 L 96 Room Air
[2023-02-25] MEDS: PANTOprazole 40 MG in SYRINGE 0 ML IV SCH (12:00)
[2023-02-25] MEDS: D5NSS + 20MEQ KCL 20 MEQ/1,000 ML BAG IV SCH ×2 (12:40→23:34)
[2023-02-25] MEDS: MoRPHine SULFATE 2 MG/ML CARP IV PRN ×2 (16:57→23:05)
[2023-02-26] MEDS: CHECK SCOPOLAMINE PATCH PLACEMENT SCH ×3 (00:24→17:25)
[2023-02-26] MEDS: MoRPHine SULFATE 2 MG/ML CARP IV PRN ×2 (02:43→09:48)
[2023-02-26] MEDS ORDERED: VANCOMYCIN LEVEL ONE (03:30)
[2023-02-26 04:38] LABS: Creatinine Clr Calc Pharmacy 103.7 ml/min; Est GFR (African American) 120.3 ml/min; Est GFR (Non-African American) 103.8 ml/min
[2023-02-26] MEDS: HYDROmorphone INJ 0.5 MG/0.5 ML SYR IV PRN ×2 (05:05→21:34)
[2023-02-26] MEDS: VANCOMYCIN HCL 1,250 MG in SODIUM CHLORIDE 0.9% 250 ML IV SCH (05:06)
[2023-02-26] MEDS: PIPERACILLIN/TAZOBACTAM 4.5 GM in DEXTROSE 5% MINI-B 100 ML IV SCH ×3 (05:06→21:59)
--- NOTE | 2023-02-26 09:12 | Pharmacy Report ---
Pharmacy PK ABX Note - Date of Service February 26, 2023 - Assessment and Plan Assessment 23 year old F receiving VANCOMYCIN/ZOSYN for treatment of perforated gastric ulcer. POD #2. Leukocytosis resolved. No culture data. Level obtained this morning suggests low end of therapeutic AUC/SHARATH target, however given level <10 mg/L will adjust do to ensure we are achieving therapeutic range. Plan Vancomycin * Loading dose: 1250 mg IV x 1 * Previous dose: 1250 mg q12H * Adjust dose to : 1000 mg IV every 8 hours * Regimen is predicted to achieve target AUC/SHARATH of 400-600 mg/L.hr (527 mg/L.hr) * Random level for 02/27 @ 1000 Pharmacy will continue to follow and will adjust dose/frequency as necessary. Thank you. Pharmacy has transitioned to AUC monitoring for vancomycin. AUC/SHARATH is the preferred PK/PD target and is associated with decreased risk of nephrotoxicity compared to traditional trough targets.
[2023-02-26 09:46] LABS: Basophils # (auto) 0.03 K/uL (0.00-0.20); Basophils % (auto) 0.4 %; Eosinophils # (auto) 0.08 K/uL (0.00-0.50); Hematocrit (blood only) 24.9 % (37.0-47.0); Hemoglobin 8.1 g/dl (12.0-16.0); Immature Granulocytes # (auto) 0.02 K/uL (0.01-0.20); Immature Granulocytes % (auto) 0.2 %; Lymphocytes # (auto) 0.67 K/uL (1.20-3.40); Lymphocytes % (auto) 8.2 %; Mean Corpuscular Hemoglobin 30.1 pg (25.0-34.0); Mean Corpuscular Hgb Conc 32.5 g/dL (32.0-36.0); Mean Corpuscular Volume 92.6 fL (80.0-100.0); Mean Platelet Volume 10.1 fL (9.4-12.4); Monocytes # (auto) 0.81 K/uL (0.11-0.59); Monocytes % (auto) 9.9 %; Neutrophils # (auto) 6.54 K/uL (1.40-6.50); Neutrophils % (auto) 80.3 %; Platelet Count 221 K/uL (130-400); RDW Coefficient of Variation 12.7 % (11.5-14.5); RDW Standard Deviation 43.5 fL (36.4-46.3); Red Blood Count 2.69 M/uL (4.20-5.40); White Blood Count 8.15 K/ul (4.8-10.8)
[2023-02-26] MEDS: PANTOprazole 40 MG in SYRINGE 0 ML IV SCH ×2 (09:47→22:04)
[2023-02-26 09:56] LABS: BUN Creatinine Ratio 8.9 (10-20); Calcium 8.5 mg/dl (8.6-10.3); Creatinine Clr Calc Pharmacy 106.3 ml/min; Potassium 3.8 mmol/L (3.5-5.1)
[2023-02-26] MEDS: MoRPHine SULFATE 4 MG/ML 1 ML CARP\\VIAL IV PRN ×3 (11:31→23:42)
--- NOTE | 2023-02-26 13:05 | Surgery Progress Note ---
Date of Service February 26, 2023 Assessment & Plan (1) Perforated gastric ulcer: Plan: UGI tomorrow GI consult incison clean and dry NG bilious Present on Admission?: Yes Admission and Anticipated Discharge Date Admission Date: February 24, 2023 Subjective feels better pain controlled ambulating Review of Systems Constitutional: no fever and no chills Respiratory: no cough and no dyspnea Cardiovascular: no chest pain Gastrointestinal: + abdominal pain; no nausea and no vomiting Physical Exam Constitutional: WD/WN, vitals as above Respiratory: normal respiratory effort, lungs clear to auscultation Cardiovascular: RRR, no murmur, no edema Gastrointestinal (Abdomen): Inspection/Auscultation: normal bowel sounds and + abdominal surgical incision; abdomen not distended Percussion/Palpation: + abdomen tender and abdomen soft; no guarding and abdomen not rigid Musculoskeletal: Head/Neck/Chest: normocephalic and head atraumatic Skin: no rashes, warm and dry Results & Data Vital Signs (Past 12 Hours) Vital Signs Temp Pulse Resp BP Pulse Ox O2 Del Method 02/26/23 08:00 Room Air 02/26/23 08:21 36.8 C 81 16 111/68 98 Room Air
[2023-02-26] MEDS: D5NSS + 20MEQ KCL 20 MEQ/1,000 ML BAG IV SCH (13:36)
[2023-02-26] MEDS: VANCOMYCIN HCL 1,000 MG in SODIUM CHLORIDE 0.9% 250 ML IV SCH ×2 (13:44→21:59)
[2023-02-27] MEDS: CHECK SCOPOLAMINE PATCH PLACEMENT SCH (03:03)
[2023-02-27] MEDS: D5NSS + 20MEQ KCL 20 MEQ/1,000 ML BAG IV SCH ×2 (04:51→20:07)
[2023-02-27] MEDS: VANCOMYCIN HCL 1,000 MG in SODIUM CHLORIDE 0.9% 250 ML IV SCH (04:53)
[2023-02-27] MEDS: PIPERACILLIN/TAZOBACTAM 4.5 GM in DEXTROSE 5% MINI-B 100 ML IV SCH ×3 (04:56→20:07)
[2023-02-27] MEDS: HYDROmorphone INJ 0.5 MG/0.5 ML SYR IV PRN ×2 (05:22→21:18)
[2023-02-27 07:02] LABS: Est GFR (African American) 143.5 ml/min; Est GFR (Non-African American) 123.9 ml/min
--- NOTE | 2023-02-27 08:44 | Gastrointestinal Consultation ---
Date of Consultation February 27, 2023 Assessment & Plan (1) Perforated gastric ulcer: 23 year old female s/p repair of perforated gastric ulcer who endorses a month of upper abd pain and mild GERD. Follow up biopsies for H.Pylori IV PPI BID while admitted At discharge may be converted to PO PPI 40 mg BID GERD dietary and lifestyle changes discussed including, no NSAIDs, no ETOH, no tobacco products Will arrange an OP EGD for evaluation once she is healed from her surgical repair. Thank you for allowing us to participate in the care of this patient. Please call with any acute changes, questions or concerns. Please see addendum below with additional recommendation from my supervising physician. Supervising Physician Co-Signing Physician Notes I have personally seen and examined the patient with LUZMA Bashir. Her note reflects my exam and findings. I agree with her impression and plan. Maybe related to past NSAID use and Doxycycline back in the summer/fall. Will arrange out patient EGD in about 6 weeks. Patient needs to stay on BID PPI as out patient. Selvin Bautista M.D. History of Present Illness Reason for Consultation: establish care, s/p repair of gastric perforation Requesting Physician: Clemente Attending Physician: Alvin Cornejo MD History of Present Illness 23 year old female without PMH who is admitted through the ED with severe abdominal pain imaging consistent with a perforated duodenal ulcer s/p repair og gastric perforation. GI was asked to evaluate to establish care. Pt was seen and evaluated, chart reviewed. Friends present at bedside. Madelin reports about a 1-2 month history of upper abd pain, which she related to ABX use. She notes she had severe upper abd pain. Mild GERD but no nausea/vomiting. Denies dysphagia. She notes since reprt of gastric perforation she has been feeling somewhat better. NG is place to LIS. She has had intermittent bilious and dark output since it has been in place. Has been NPO. Path from procedure is pending. She denies use of NSAIDs No tobacco Rare ETOH CTAP 2022: Diffuse free air within the upper abdomen. Findings may relate to viscus perforation. Site of perforation not identified. Consider surgical consultation. No evidence of bowel obstruction. Mild pelvic free fluid which may be reactive or physiologic in nature. The appendix is poorly visualized without gross findings to suggest appendicitis. Motion artifact and bolus timing limit evaluation. Despite this, no evidence of pulmonary embolism within the pulmonary outflow tract or immediate proximal branches. Allergies Allergy/AdvReac Type Severity Reaction Status Date / Time No Known Allergies Allergy Unverified 01/02/23 23:10 Patient History Medical History (Updated 02/25/23 @ 11:32 by Alvin Cornejo MD) Perforated gastric ulcer Social History Smoking Status: Never smoker Second Hand Exposure: No; Do You Dip or Chew Tobacco: No; Tobacco Cessation Education Requested by Patient: No Hx Alcohol Use: Yes Hx Substance Use: No Preferred Language: Eritrean Communication Ability: Effective Chef Passenger Vessel Required: No Beliefs That Will Affect Care: None Other Information That Helps Us Care for You: No Feels Safe at Home: Yes Safety Concerns: Feels Safe At This Time Assistive Devices: None Review of Systems Review of Systems: All systems reviewed & are unremarkable except as noted in HPI & below Physical Exam Constitutional: WD/WN, vitals as above Respiratory: normal respiratory effort Cardiovascular: Rate/Rhythm: regular rate Gastrointestinal (Abdomen): Percussion/Palpation: + abdomen tender and abdomen soft Skin: no rashes, warm and dry Results & Data Vital Signs (Past 12 Hours) Vital Signs Temp Pulse Resp BP BP Pulse Ox O2 Del Method 02/27/23 07:12 37.1 C 52 L 16 113/65 98 Room Air 02/26/23 21:30 Room Air 02/26/23 21:38 37.1 C 56 L 16 112/68 93 Room Air Laboratory Results 02/27/23 02/26/23 02/26/23 Range/Units 06:14 09:15 09:15 WBC 8.15 (4.8-10.8) K/ul RBC 2.69 L (4.20-5.40) M/uL Hgb 8.1 L (12.0-16.0) g/dl Hct 24.9 L (37.0-47.0) % MCV 92.6 (80.0-100.0) fL MCH 30.1 (25.0-34.0) pg MCHC 32.5 (32.0-36.0) g/dL RDW Std Deviation 43.5 (36.4-46.3) fL RDW Coeff of Pam 12.7 (11.5-14.5) % Plt Count 221 (130-400) K/uL MPV 10.1 (9.4-12.4) fL Immature Gran % (Auto) 0.2 % Neut % (Auto) 80.3 % Lymph % (Auto) 8.2 % Jerome % (Auto) 9.9 % Eos % (Auto) 1.0 % Baso % (Auto) 0.4 % Neut # (Auto) 6.54 H (1.40-6.50) K/uL Lymph # (Auto) 0.67 L (1.20-3.40) K/uL Jerome # (Auto) 0.81 H (0.11-0.59) K/uL Eos # (Auto) 0.08 (0.00-0.50) K/uL Baso # (Auto) 0.03 (0.00-0.20) K/uL Immature Gran # (Auto) 0.02 (0.01-0.20) K/uL Sodium 138 (136-145) mmol/L Potassium 3.8 (3.5-5.1) mmol/L Chloride 107 (98-107) mmol/L Carbon Dioxide 26 (21-32) mmol/L Anion Gap 5 (3-11) BUN 7 (6-23) mg/dl Creatinine 0.70 0.79 (0.6-1.2) mg/dl Est Cr Clr Drug Dosing 120.0 106.3 ml/min Est GFR ( Amer) 143.5 124.0 ml/min Est GFR (Non-Af Amer) 123.9 107.0 ml/min BUN/Creatinine Ratio 8.9 L (10-20) Glucose 105 H (70-99(Fasting)) mg/dl Calcium 8.5 L (8.6-10.3) mg/dl
[2023-02-27] MEDS: MoRPHine SULFATE 4 MG/ML 1 ML CARP\\VIAL IV PRN ×3 (09:41→16:54)
[2023-02-27] MEDS: PANTOprazole 40 MG in SYRINGE 0 ML IV SCH ×2 (09:44→22:23)
--- NOTE | 2023-02-27 13:26 | Fluoroscopy Report ---
[place] upper GI series wo air CLINICAL HISTORY: POD # 3 repair gastric perf, eval for leakprior gastric repair with recent perforat ion. COMPARISON STUDY: CT 02/24/2023 FLUOROSCOPY TIME: 1.05 minutes FLUOROSCOPY IMAGES: 10 Ka,r: 23.4 mGy FINDINGS: Enteric contrast was administered to the patient through the enteric tube. Contrast is note d within the distal esophagus, stomach, duodenum and proximal jejunum. No extravasation of oral contr ast. No discrete mucosal abnormality identified. Anterior abdominal midline skin ike. IMPRESSION: Unremarkable exam. No enteric contrast extravasation identified. ACT 112: Negative or not required by law. Electronically signed by: Giancarlo Morales M.D. 02/27/2023 1:24 PM
--- NOTE | 2023-02-27 14:13 | Pharmacy Report ---
Pharmacy PK ABX Note - Date of Service February 27, 2023 - Assessment and Plan Assessment 23 year old F receiving VANCOMYCIN/ZOSYN for treatment of perforated gastric ulcer. POD #3. Leukocytosis resolved. No culture data. Level obtained this morning suggests low end of therapeutic AUC/SHARATH target, with low probability of attainment. Plan Vancomycin * Previous dose: 1000 mg q8H * Adjust dose to : 1250 mg IV every 8 hours * Regimen is predicted to achieve target AUC/SHARATH of 400-600 mg/L.hr (529 mg/L.hr) * Random level if continued > 48 hours Pharmacy will continue to follow and will adjust dose/frequency as necessary. Thank you. Pharmacy has transitioned to AUC monitoring for vancomycin. AUC/SHARATH is the preferred PK/PD target and is associated with decreased risk of nephrotoxicity compared to traditional trough targets.
[2023-02-27] MEDS: VANCOMYCIN HCL 1,250 MG in SODIUM CHLORIDE 0.9% 250 ML IV SCH ×2 (14:35→22:23)
[2023-02-27] MEDS ORDERED: oxyCODONE/ACETAMINOPHEN 5mg/325mg TAB PO PRN (16:12)
--- NOTE | 2023-02-27 16:15 | Surgery Progress Note ---
Date of Service February 27, 2023 Assessment & Plan (1) Perforated gastric ulcer: Plan: POD # 3 ex lap with repair perforated gastric ulcer avss postop pain controlled no n,v upper Gi without extravasation Plan: Continue pain mangement Discontinue NGT start clears continue ambulate continue BID PPI IV push appreciate GI consultation, will have f/u for endoscopy set up Discussed with Dr. logan who agrees with above Admission and Anticipated Discharge Date Admission Date: February 24, 2023 Subjective feeling okay, pain controlled but still moderate at times more with movement and coughing ambulating hallway no chest pain or shortness of breath no nausea or vomiting not passing gas yet urinating without difficulty Physical Exam Constitutional: WD/WN, vitals as above cooperative; no acute distress, not ill appearing, not in distress and not combative Respiratory: normal respiratory effort Gastrointestinal (Abdomen): Inspection/Auscultation: abdomen normal to inspection, normal bowel sounds, + abdominal surgical incision (clean/dry/intact with ike) and + abdominal surgical drain present (serosangunieous); abdomen not distended Percussion/Palpation: + abdomen tender (at midline incision and drain site) and abdomen soft; no guarding, abdomen not rigid and abdomen not firm Psychiatric: A+Ox3, euthymic affect Results & Data Vital Signs (Past 12 Hours) Vital Signs Temp Pulse Resp BP BP Pulse Ox O2 Del Method 02/27/23 14:38 37.3 C 55 L 16 106/61 98 Room Air 02/27/23 07:12 37.1 C 52 L 16 113/65 98 Room Air Laboratory Results 02/27/23 02/27/23 Range/Units 09:45 06:14 Creatinine 0.70 (0.6-1.2) mg/dl Est Cr Clr Drug Dosing 120.0 ml/min Est GFR ( Amer) 143.5 ml/min Est GFR (Non-Af Amer) 123.9 ml/min Random Vancomycin 13.6 (10-20) mcg/ml
[2023-02-28] MEDS: HYDROmorphone INJ 0.5 MG/0.5 ML SYR IV PRN (02:17)
[2023-02-28] MEDS: VANCOMYCIN HCL 1,250 MG in SODIUM CHLORIDE 0.9% 250 ML IV SCH (05:00)
[2023-02-28] MEDS: PIPERACILLIN/TAZOBACTAM 4.5 GM in DEXTROSE 5% MINI-B 100 ML IV SCH ×3 (05:00→21:14)
[2023-02-28] MEDS: MoRPHine SULFATE 4 MG/ML 1 ML CARP\\VIAL IV PRN (05:08)
[2023-02-28 07:09] LABS: Creatinine Clr Calc Pharmacy 133.3 ml/min; Est GFR (African American) 148.6 ml/min; Est GFR (Non-African American) 128.2 ml/min
[2023-02-28] MEDS: PANTOprazole 40 MG in SYRINGE 0 ML IV SCH ×2 (09:01→21:15)
--- NOTE | 2023-02-28 09:55 | Surgery Progress Note ---
Date of Service February 28, 2023 Assessment & Plan (1) Perforated gastric ulcer: Plan: POD # 4 ex lap with repair perforated gastric ulcer avss postop pain controlled no n,v upper Gi without extravasation Plan: Continue pain management, oral pain meds prn recommended once advancing diet Continue clears for now given low appetite, full liquids for dinner continue ambulating hallway continue giorgi drain to bulb suction continue BID PPI IV push appreciate GI consultation, will have f/u for endoscopy set up possible discharge tomorrow afternoon /evening if pain controlled with oral meds and tolerating soft diet can discontinue IV Vanc, continue zosyn for now Dr. Cornejo has seen patient and agrees with above. Admission and Anticipated Discharge Date Admission Date: February 24, 2023 Subjective feeling good this am pain moderate last night but otherwise controlled tolerating small amounts of clear liquids without nausea or pain but low appetite, not drinking much water yet urinating without difficulty small amount of flatus this morning no fevers or chills Physical Exam Constitutional: WD/WN, vitals as above cooperative and comfortable; no acute distress, not ill appearing and not combative Respiratory: normal respiratory effort; no respiratory distress and no labored breathing Gastrointestinal (Abdomen): Inspection/Auscultation: abdomen normal to in spection, + abdominal surgical incision (covered with clean/dry/intact dressing), + abdominal surgical drain present (serous) and + hypoactive bowel sounds; abdomen not distended Percussion/Palpation: + abdomen tender (at midline incision and drain site, appropriate postop) and abdomen soft; no guarding, abdomen not rigid and abdomen not firm Skin: no rashes, warm and dry Psychiatric: A+Ox3, euthymic affect Results & Data Vital Signs (Past 12 Hours) Vital Signs Temp Pulse Resp BP Pulse Ox O2 Del Method 02/28/23 07:07 36.9 C 62 18 106/62 98 Room Air Laboratory Results 02/28/23 02/27/23 Range/Units 06:29 09:45 Creatinine 0.63 (0.6-1.2) mg/dl Est Cr Clr Drug Dosing 133.3 ml/min Est GFR ( Amer) 148.6 ml/min Est GFR (Non-Af Amer) 128.2 ml/min Random Vancomycin 13.6 (10-20) mcg/ml
[2023-02-28] MEDS ORDERED: FLUCONAZOLE 50 MG TAB PO ONE (11:16)
[2023-02-28] MEDS: D5NSS + 20MEQ KCL 20 MEQ/1,000 ML BAG IV SCH (12:03)
[2023-02-28] MEDS: MoRPHine SULFATE 2 MG/ML CARP IV PRN (14:06)
[2023-02-28] MEDS: oxyCODONE/ACETAMINOPHEN 5mg/325mg TAB PO PRN (18:58)
[2023-03-01] MEDS: D5NSS + 20MEQ KCL 20 MEQ/1,000 ML BAG IV SCH ×2 (00:25→12:52)
[2023-03-01] MEDS: PIPERACILLIN/TAZOBACTAM 4.5 GM in DEXTROSE 5% MINI-B 100 ML IV SCH ×2 (04:38→11:44)
[2023-03-01] MEDS: oxyCODONE/ACETAMINOPHEN 5mg/325mg TAB PO PRN ×2 (05:30→16:59)
[2023-03-01] MEDS ORDERED: VANCOMYCIN LEVEL ONE (05:30)
[2023-03-01 07:14] VITALS: RESP 18; TEMP 97.9; O2SAT 99
[2023-03-01] MEDS: PANTOprazole 40 MG in SYRINGE 0 ML IV SCH (08:50)
[2023-03-01 10:06] VITALS: BP 105/56; PULSE 50
--- NOTE | 2023-03-01 11:33 | Surgery Progress Note ---
Date of Service March 01, 2023 Assessment & Plan (1) Perforated gastric ulcer: Plan: POD # 5 ex lap with repair perforated gastric ulcer avss postop pain controlled no n,v upper Gi without extravasation Plan: Continue pain management as needed Full liquids for lunch, soft diet for dinner continue ambulating hallway continue giorgi drain to bulb suction, will remove prior to discharge continue BID PPI IV push, transition to oral BID on discharge appreciate GI consultation, will have f/u for endoscopy set up continue IV Zosyn while inpatient, transition to oral Augmentin on discharge f/u with me in office on 03/08/2023 discharge instructions reviewed if tolerates soft diet for dinner will discharge this evening Dr. Cornejo has seen patient and agrees with above. Admission and Anticipated Discharge Date Admission Date: February 24, 2023 Subjective feeling good, pain controlled tolerated small amount of full liquid for breakfast, tray was taken away before she got to eat more no n,v no bowel movement yet urinating and ambulating without difficulty Physical Exam Constitutional: WD/WN, vitals as above cooperative and comfortable; no acute distress and not ill appearing Respiratory: normal respiratory effort; no respiratory distress Gastrointestinal (Abdomen): Inspection/Auscultation: abdomen normal to inspection, + abdominal surgical incision (clean/dry/intact with ike), + abdominal surgical drain present (serous) and + hypoactive bowel sounds; abdomen not distended and + abnormal bowel sounds Percussion/Palpation: + abdomen tender (at drain site and midline incision) and abdomen soft; no guarding, abdomen not rigid and abdomen not firm Skin: no rashes, warm and dry Psychiatric: A+Ox3, euthymic affect Results & Data Vital Signs (Past 12 Hours) Vital Signs Temp Pulse Resp BP Pulse Ox O2 Del Method 03/01/23 10:05 50 L 105/56 L 99 Room Air 03/01/23 07:12 36.6 C 47 L 18 93/56 L 99 Room Air
[2023-03-01] MEDS ORDERED: ACETAMINOPHEN 325 MG TAB PO PRN (12:48)
[2023-03-01] MEDS ORDERED: POLYETHYLENE (MIRALAX) 17 GM PACK PO STA (12:55)
[2023-03-01] MEDS ORDERED: DOCUSATE SODIUM 100 MG CAP PO SCH (13:00)
--- NOTE | 2023-03-02 09:16 | Discharge Summary ---
Date of Service March 02, 2023 Admission HPI Per Admitting Provider This is a 23-year-old female complaining of chest/abdominal pain, nausea vomiting dizziness started after being at a haunted house who also just started fluoxetine 3 days ago. No vomiting. Seen initially and then pain got much worse. She denies fever, chills, cough, congestion, back pain, dyspnea, abdominal pain, leg pain or swelling. Not on chronic NSAIDs. CT scan shows free air and some fluid in her pelvis; no diverticulitis/no appendicitis. Principal Diagnosis Perforated gastric ulcer Discharge Data Allergies Allergy/AdvReac Type Severity Reaction Status Date / Time No Known Allergies Allergy Unverified 02/28/23 15:10 Consultations 02/24/23 07:08 Consult General Surgery Routine 02/26/23 14:15 Consult Gastroenterology Routine Procedures Performed Operation Date: 02/24/23 11:00 Actual Procedures p Exploratory Laparotomy, Repair of Intenstinal Perforation(Not Applicable) - Alvin Cornejo MD Ordered Studies 02/24/23 02:52 CT Abd and Pelvis [CT abd pelvis IV con only] Stat CT angio chest PE protocol Stat Hospital Course (1) Perforated gastric ulcer: Patient was taken to operating room on 02/24/2023 for emergent exploratory laparotomy by Dr. Cornejo for perforated gastric ulcer. Patient found to have a subcentimeter gastric perforation just proximal to the pylorus on the anterior surface of the stomach. Patient tolerated procedure without difficulty and was transferred to recovery room then to medical/surgical floor for postoperative care. NGT was placed intraoperatively and kept to intermittent suction. She was placed on IV pain management and antiemetics as needed, IV PPI daily and changed to BID on POD # 2, and IV Antibiotics. Diet was kept NPO until upper GI study was completed on POD # 3 which showed no extravasation of contrast. NGT was removed and diet advanced slowly to low fiber diet by POD # 5. Patient tolerated advancement of diet and pain controlled with oral pain medication prior to discharge. Patient was discharged home on POD # 5 in stable condition. Kurt drain was removed prior to discharge. Total Time Total Time Spent Total Time Spent (In Minutes): 30 minutes Total Time Includes: Examination of the Patient, Discharge Planning and Medication Reconciliation Discharge Plan Discharge Items Patient Disposition: Home - Self-Care Reason For Visit: PERFORATED GASTRIC ULCER Discharge Diagnosis: Perforated gastric ulcer Condition on Discharge: Good Activity: Per Instructions section Non-emergency contact: Primary Care Provider and Surgeon Call non-emergency contact if: you have any medication questions, your pain is not controlled, you have a fever, your temperature is above 101, your wound has increased redness, your wound has increased drainage and your wound pain has increased Follow-up/Referrals: Alvin Cornejo MD [Physician] - 03/12/23 10:30 am Martine Connolly PA-C [Physician Environmental Director] - 03/08/23 9:00 am [facility] [Primary Care Provider] - Diet: Low Fiber Addtl Attending Provider Instructions: Post-Surgical ~Discharge Instructions Activity Recommendations: - lifting limitation: (10 pounds for 6 weeks), - exercise/sex/sports limit: (nonstrenuous for 6 weeks), - driving or machine use limit: (none for 1 week or until pain free and no longer taking narcotic pain medication), - Shower/bathe limit: (may shower , no submerging incision underwater for at least 2 weeks) Diet: - Low fiber diet - smaller more frequent meals SPECIAL CARE INSTRUCTIONS: - May shower.. Let water run over area and pat dry. - Surgical ike will be removed in office next week 03/08/2023 - Surgical drain site will heal from inside out, keep dressing over the area and change as needed and daily to keep clean and dry. - Call the surgeon's office with any questions or concerns - - (ex. temperature higher than 101 degrees F, excessive bleeding or pain). MEDICATIONS: - Resume previous medications unless instructed otherwise by your surgeon. - May take extra strength Tylenol as needed for mild to moderate pain -650 mg Tylenol every 6 hours as needed - Avoid NSAIDs (Ibuprofen, Motrin, Aleve, Aspirin) given the perforated ulcer in your stomach - Percocet 1 every 4-6 hours, as needed for moderate to severe pain * Percocet has 325 mg of Tylenol in each tablet. If you are taking extra strength Tylenol during day and Percocet , DO NOT exceed 3,000 mg of Tylenol in a 24 hour period. - Recommend taking stool softener (Colace) while taking narcotic pain medication to prevent constipation or straining. Drink plenty of water daily. If you still feel constipated, you can take Miralax daily (17 gms/ 1 capful) for 3 days. If having loose stools, you do not need to take the stool softener. FOLLOW UP VISIT: - If not already scheduled, please call the office to schedule a one week follow-up appointment. Office number Pending Studies at Discharge: Yes (final pathology) Stand-Alone Forms: My [facility], Pain - Opioid Pain Management, Work/School Release, Smoking Cessation Medications and DC Order Prescriptions: New oxycodone-acetaminophen 5-325 mg tablet 1 tab PO Q4H PRN (Reason: pain) Qty: 18 0RF amoxicillin-pot clavulanate 875-125 mg tablet 1 tab PO BID Qty: 14 0RF pantoprazole 40 mg tablet,delayed release (DR/EC) 40 mg PO BID 30 Days Qty: 60 2RF Continued hydroxyzine HCl 10 mg tablet 10 mg PO BID PRN (Reason: Anxiety) fluoxetine 20 mg capsule 20 mg PO QAM Discharge Orders: Discharge Order (Routine); Ordered 03/01/23 Ordered By: Martine Powell/Other Patient Handouts: Soft [place] Diet Dc, Understanding Gastric Ulcers, Understanding Perforated Ulcers Admission Data Admit Date/Time: 02/24/23 11:15 Attending Provider: Alvin Cornejo Admit Provider: Alvin Cornejo Primary Care Provider: [facility] Other Providers: Alvin Cornejo ; Eugenie Ventura ; Mariano Jerome ; Kaela Perrin ; Martine Vargas ; Tram Dorsey ; Caro Salazar ; Kaleb Hamm ; Terry Prater ; Ana Luisa Mota ; Josefina Barillas ; Selvin Bautista ; Marla Pacheco ; Airam Lynne ; Nena Dickey ; Jovana Catherine ; Abbey Anton ; Herve Mireles ; Bridger Khan ; Candice Bowser ; Jordan Guevara Jr Other Interventions: Discharge Summary Assessment (RN) Last Done: 03/01/23 17:01
== END 2023-03-01 18:24 | disposition home or self-care (01) | DRG 328 ==
LOC: ED 00:13 → 3E 08:47
DX: K21.9 Gastro-esophageal reflux disease without esophagitis; K25.5 Chronic or unspecified gastric ulcer with perforation